=== PATIENT | male | born 1965 | race American Indian/Alaskan Native ===

== ENCOUNTER 2018-08-28 10:25 | Day surgery (SDC) | payer OTHER ==
[2018-08-28 10:19] LABS: Basophils % (Auto) 0.5 % (0.0-1.8); Eosinophils # (Auto) 0.1 K/mm3 (0.0-0.4); Hematocrit 41.5 % (35.5-45.6); Hemoglobin 13.7 gm/dl (11.8-15.2); Lymphocytes # (Auto) 1.6 K/mm3 (1.2-5.4); Lymphocytes % (Auto) 18.7 % (13.4-35.0); Mean Corpuscular HGB Conc 33 % (32-34); Mean Corpuscular Volume 89 fl (84-94); Monocytes # (Auto) 0.8 K/mm3 (0.0-0.8); Monocytes % (Auto) 9.7 % (0.0-7.3); Platelet Count 253 K/mm3 (140-440); Red Blood Count 4.65 M/mm3 (3.65-5.03); Red Cell Distribution Width 13.7 % (13.2-15.2)
[2018-08-28 10:22] LABS: Albumin 4.3 g/dL (3.9-5); Calcium 9.3 mg/dL (8.4-10.2)
[~2018-08-28 10:25] MED LIST: DILAUDID IV ONE; LACTATED RINGERS ONE; LEVAQUIN IV ONE; NACL 0.9% 1000 ML 1,000 ML IV ONE; NACL 0.9% 1000 ML ONE; SUBLIMAZE ONE; WATER FOR IRRIG STERILE IR ONE; ZOFRAN IV ONE
--- NOTE | 2018-08-28 10:35 | Emergency Department Report ---
ED Abdominal Pain HPI - General Chief Complaint: Abdominal Pain Stated Complaint: KIDNEY STONES Time Seen by Provider: 08/28/18 09:54 Source: patient Mode of arrival: Ambulatory Limitations: No Limitations - History of Present Illness Initial Comments: Patient is a 53-year-old [place] male who is presenting with right flank pain. Patient has had pain for approximately 1 week. Patient has seen Dr. Amaro as an outpatient for obstructive right-sided kidney stone. Patient continued to have pain which she states is a sharp pain in the right flank with nausea vomiting. Patient denies fevers chills cough cold or congestion. Patient was sent to to the emergency department to be prepped for surgery. - Related Data Allergies Allergy/AdvReac Type Severity Reaction Status Date / Time latex Allergy Hives Verified 08/28/18 08:24 Penicillins Allergy Hives Verified 08/28/18 08:23 ED Review of Systems ROS: Stated complaint: KIDNEY STONES Other details as noted in HPI Comment: All other systems reviewed and negative ED Past Medical Hx - Past Medical History Hx Hypertension: Yes - Surgical History Hx Appendectomy: Yes - Social History Smoking Status: Never Smoker Substance Use Type: None ED Physical Exam - General Limitations: No Limitations General appearance: alert, in distress - Head Head exam: Present: atraumatic, normocephalic - Eye Eye exam: Present: normal appearance - ENT ENT exam: Present: mucous membranes moist - Neck Neck exam: Present: normal inspection - Respiratory Respiratory exam: Present: normal lung sounds bilaterally. Absent: respiratory distress, wheezes, rales, rhonchi - Cardiovascular Cardiovascular Exam: Present: regular rate, normal rhythm. Absent: systolic murmur, diastolic murmur, rubs, gallop - GI/Abdominal GI/Abdominal exam: Present: soft, tenderness (right flank), normal bowel sounds. Absent: distended, guarding, rebound - Rectal Rectal exam: Present: deferred - Extremities Exam Extremities exam: Present: normal inspection - Back Exam Back exam: Present: normal inspection, CVA tenderness (R) - Neurological Exam Neurological exam: Present: alert, oriented X3 - Psychiatric Psychiatric exam: Present: normal affect, normal mood - Skin Skin exam: Present: warm, dry, intact, normal color. Absent: rash ED Course Vital Signs 08/28/18 08:24 Temperature 98.7 F Pulse Rate 88 Respiratory 18 Rate Blood Pressure 153/102 [Right] O2 Sat by Pulse 97 Oximetry ED Medical Decision Making - Lab Data Result diagrams: 08/28/18 09:50 08/28/18 09:50 - Medical Decision Making Patient was given a bolus IV fluids and meds for symptomatic relief. Patient will be sent to the preop area at this time. Patient admitted under observation status. Critical care attestation.: If time is entered above; I have spent that time in minutes in the direct care of this critically ill patient, excluding procedure time. ED Disposition Clinical Impression: Obstructive uropathy Disposition: OP ADMIT IP TO THIS HOSP Is pt being admited?: Yes Does the pt Need Aspirin: No Condition: Stable Time of Disposition: 10:35
[2018-08-28] MEDS ORDERED: DIPRIVAN 10 MG/ML IV ONE (10:40)
[2018-08-28] MEDS ORDERED: XYLOCAINE MPF 2% ONE (10:40)
[2018-08-28] MEDS ORDERED: SUBLIMAZE ONE ×3 (10:40→14:03)
[2018-08-28 10:47] LABS: Bilirubin,Urine NEG (Negative); Blood,Urine MOD (Negative); Color,Urine Yellow (Yellow); Mucus,Urine FEW /HPF; Protein,Urine <15 mg/dL mg/dL (Negative); Urobilinogen,Urine < 2.0 mg/dL (<2.0)
[2018-08-28] MEDS ORDERED: LEVAQUIN 500MG/100ML 500 MG/100 ML BAG IV SCH (10:57)
[2018-08-28] MEDS ORDERED: LACTATED RINGERS 1,000 ML IV SCH (11:00)
[2018-08-28] MEDS ORDERED: LACTATED RINGERS 1,000 ML ONE (11:07)
[2018-08-28] MEDS ORDERED: NACL 0.9% 1000 ML 1,000 ML IV SCH (11:21)
[2018-08-28] MEDS ORDERED: ZOFRAN IV PRN (11:34)
[2018-08-28] MEDS ORDERED: SUBLIMAZE IV PRN (11:34)
--- NOTE | 2018-08-28 11:35 | Anesthesia Day of Surgery ---
Anesthesia Day of Surgery - Day of Surgery Patient Examined: Yes Patient H&P Reviewed: Yes Patient is NPO: Yes
--- NOTE | 2018-08-28 11:38 | Anesthesia Consultation ---
Anesthesia Consult and Med Hx Date of service: 08/28/18 - Airway Anesthetic Teeth Evaluation: Good ROM Head & Neck: Adequate Mental/Hyoid Distance: Adequate Mallampati Class: Class II Intubation Access Assessment: Good - Pre-Operative Health Status ASA Pre-Surgery Classification: ASA2, Emergency Proposed Anesthetic Plan: General - Cardiovascular System Hx Hypertension: Yes - Endocrine Hx Renal Disease: No (Cr-1.7) Hx Non-Insulin Dependent Diabetes: Yes
[2018-08-28] MEDS ORDERED: LEVAQUIN 500MG/100ML 500 MG/100 ML BAG IV ONE (11:44)
[2018-08-28] MEDS ORDERED: WATER FOR IRRIG STERILE IR ONE (12:08)
--- NOTE | 2018-08-28 12:34 | Short Stay Summary ---
Short Stay Documentation - History H&P: obtained from office - Allergies and Medications Current Medications: Allergies latex Allergy (Verified 08/28/18 08:24) Hives Penicillins Allergy (Verified 08/28/18 08:23) Hives Active Medications Fentanyl (Sublimaze) 50 mcg IV Q5MIN PRN PRN Reason: Pain , Severe (7-10) Stop: 08/28/18 20:00 Ondansetron HCl (Zofran) 4 mg IV ONCE PRN PRN Reason: Nausea And Vomiting Stop: 08/28/18 20:00 - Brief post op/procedure progress note Date of procedure: 08/28/18 Pre-op diagnosis: rt distal stone Post-op diagnosis: same Procedure: cysto, rpg, rt ureteroscopy, basket stone, stent with string Anesthesia: JACKELYN Surgeon: DIEGO MCLEAN Estimated blood loss: none Pathology: list (give stone to pt) Condition: stable - Hospital course Hospital course: vic ayala, fallon on chart give stone to pt - Disposition Condition at discharge: Stable Disposition: DC-09 OP ADMIT IP TO THIS HOSP Short Stay Discharge Plan Follow up with: EDGAR RATLIFF MD [Primary Care Provider] - 7 Days
[2018-08-28] MEDS ORDERED: NACL 0.9% 1000 ML 1,000 ML ONE ×2 (13:45→14:58)
--- NOTE | 2018-08-28 13:47 | Operative Report ---
PREOPERATIVE DIAGNOSIS: Right distal stone with severe colic and vomiting. POSTOPERATIVE DIAGNOSIS: Right distal stone with severe colic and vomiting. PROCEDURE: Cystoscopy, bilateral retrograde pyelograms, right ureteroscopy, basket stone extraction, double-J stent with a string (6-Austrian 24 cm). SURGEON: Сергей Amaro MD ANESTHESIA: General. ESTIMATED BLOOD LOSS: Minimal. FLUIDS: Crystalloid. COMPLICATIONS: No complications. INDICATIONS: This 53-year-old gentleman was seen in the office with right flank pain. He had been to several medical facilities regarding right flank pain. He had a CT of abdomen and pelvis, which revealed a 3 mm distal stone in the office. He had persistent pain over the weekend. It worsened with vomiting. He ultimately presented to the Emergency Room. He was taken to the OR. DESCRIPTION OF PROCEDURE: The patient was taken to the operative suite, placed in a supine position. After adequate general anesthesia, placed in a dorsal lithotomy position, prepped and draped in a sterile fashion. Pancystourethroscopy was performed with a 22-Austrian Storz cystoscope. He has a normal urethra, prostate, nonobstructing bladder, no tumors or stones were noted. Bilateral retrograde pyelograms were obtained with an 8-Austrian [place] catheter and 8 mL of contrast. No filling defects or obstruction on the left. Right side obvious distal filling defect consistent with the stone. Two 0.035 Glidewires were placed. Right rigid ureteroscopy was performed. A distal 3 mm stone could be appreciated. It was engaged with a 3-Austrian Giuliana basket, extracted without difficulty. He had some debris in the ureter; therefore I did not scope to the renal pelvis. A 6-Austrian 24 cm double-J stent was left internal. Adequate position confirmed on fluoroscopy, had an external string. His bladder was drained. Rectal exam was benign. He was extubated and taken to recovery room. We will give him his stone. He will go home on Levaquin, Ultram and Alvin. JOB# [id number] [facility]
[2018-08-28] MEDS ORDERED: NORCO 5/325 PO PRN (15:58)
[2018-08-28 17:19] VITALS: BP 148/87
--- NOTE | 2018-08-29 07:55 | Fluoroscopy Report ---
FLUOROSCOPY RETROGRADE UROGRAPHY: HISTORY: Right ureteral stone. FINDINGS: Fluoroscopy was provided by radiology during retrograde urography by the urologist. 4 fluoroscopic images were captured. The left retrograde pyelogram is normal. Images of the right retrograde pyelogram demonstrate a small filling defect estimated at 4 mm in the distal right ureter consistent with a mildly obstructing stone. Subsequent images demonstrate right ureteroscopy. The stone was removed with the use of a basket. A right ureteral stent was placed which adequately drains the right collecting system on the final image. Please correlate with the procedural report by Dr. Amaro as needed. IMPRESSION: Right ureteral stone removal. Right ureteral stent placement.
--- NOTE | 2018-09-18 15:28 | Emergency Department Report ---
ED Abdominal Pain HPI - General Chief Complaint: Abdominal Pain Stated Complaint: KIDNEY STONES Time Seen by Provider: 08/28/18 09:54 Source: patient Mode of arrival: Ambulatory Limitations: No Limitations - History of Present Illness Initial Comments: Patient is a 53-year-old [place] male who is presenting with right flank pain. Patient has had pain for approximately 1 week. Patient has seen Dr. Amaro as an outpatient for obstructive right-sided kidney stone. Patient continued to have pain which she states is a sharp pain in the right flank with nausea vomiting. Patient denies fevers chills cough cold or congestion. Patient was sent to to the emergency department to be prepped for surgery. - Related Data Home Medications Medication Instructions Recorded Confirmed Last Taken amLODIPine [Norvasc] 5 mg PO DAILY 08/28/18 08/28/18 08/27/18 08:00 metFORMIN [Glucophage] 500 mg PO BID 08/28/18 08/28/18 08/25/18 10:00 Allergies Allergy/AdvReac Type Severity Reaction Status Date / Time latex Allergy Hives Verified 08/28/18 08:24 Penicillins Allergy Hives Verified 08/28/18 08:23 ED Review of Systems ROS: Stated complaint: KIDNEY STONES Other details as noted in HPI Comment: All other systems reviewed and negative ED Past Medical Hx - Past Medical History Hx Hypertension: Yes - Surgical History Hx Appendectomy: Yes - Social History Smoking Status: Never Smoker Substance Use Type: None - Medications Home Medications: Home Medications Medication Instructions Recorded Confirmed Last Taken Type amLODIPine [Norvasc] 5 mg PO DAILY 08/28/18 08/28/18 08/27/18 08:00 History metFORMIN [Glucophage] 500 mg PO BID 08/28/18 08/28/18 08/25/18 10:00 History ED Physical Exam - General Limitations: No Limitations General appearance: alert, in distress - Head Head exam: Present: atraumatic, normocephalic - Eye Eye exam: Present: normal appearance - ENT ENT exam: Present: mucous membranes moist - Neck Neck exam: Present: normal inspection - Respiratory Respiratory exam: Present: normal lung sounds bilaterally. Absent: respiratory distress, wheezes, rales, rhonchi - Cardiovascular Cardiovascular Exam: Present: regular rate, normal rhythm. Absent: systolic murmur, diastolic murmur, rubs, gallop - GI/Abdominal GI/Abdominal exam: Present: soft, tenderness (right flank), normal bowel sounds. Absent: distended, guarding, rebound - Rectal Rectal exam: Present: deferred - Extremities Exam Extremities exam: Present: normal inspection - Back Exam Back exam: Present: normal inspection, CVA tenderness (R) - Neurological Exam Neurological exam: Present: alert, oriented X3 - Psychiatric Psychiatric exam: Present: normal affect, normal mood - Skin Skin exam: Present: warm, dry, intact, normal color. Absent: rash ED Course Vital Signs 08/28/18 08:24 Temperature 98.7 F Pulse Rate 88 Respiratory 18 Rate Blood Pressure 153/102 [Right] O2 Sat by Pulse 97 Oximetry ED Medical Decision Making - Medical Decision Making Patient was given a bolus IV fluids and meds for symptomatic relief. Patient will be sent to the preop area at this time. Patient admitted under observation status. Critical care attestation.: If time is entered above; I have spent that time in minutes in the direct care of this critically ill patient, excluding procedure time. ED Disposition Is pt being admited?: Yes Does the pt Need Aspirin: No Time of Disposition: 10:35
--- NOTE | 2018-09-18 15:29 | Anesthesia Day of Surgery ---
Anesthesia Day of Surgery - Day of Surgery Patient Examined: Yes Patient H&P Reviewed: Yes Patient is NPO: Yes
--- NOTE | 2018-09-18 15:32 | Short Stay Summary ---
Short Stay Documentation - History H&P: obtained from office - Allergies and Medications Current Medications: Allergies latex Allergy (Verified 08/28/18 08:24) Hives Penicillins Allergy (Verified 08/28/18 08:23) Hives Active Medications Fentanyl (Sublimaze) 50 mcg IV Q5MIN PRN PRN Reason: Pain , Severe (7-10) Stop: 08/28/18 20:00 Ondansetron HCl (Zofran) 4 mg IV ONCE PRN PRN Reason: Nausea And Vomiting Stop: 08/28/18 20:00 - Brief post op/procedure progress note Date of procedure: 08/28/18 Pre-op diagnosis: rt distal stone Post-op diagnosis: same Procedure: cysto, rpg, rt ureteroscopy, basket stone, stent with string Anesthesia: JACKELYN Surgeon: DIEGO MCLEAN Estimated blood loss: none Pathology: list (give stone to pt) Condition: stable - Hospital course Hospital course: levaquin, norco, ultram on chart give stone to pt Short Stay Discharge Plan Additional Instructions: Follow up within one to two weeks Force plenty of fluid. Follow up with: ROXIE ROSS MD [Primary Care Provider] - 7 Days Forms: [facility]
== END 2018-08-28 12:00 | disposition home or self-care (01) ==
LOC: OR 10:25
PROVIDERS: ATTEND Urology
DX: N20.1 Calculus of ureter (principal); I10 Essential (primary) hypertension; G47.33 Obstructive sleep apnea (adult) (pediatric); E11.9 Type 2 diabetes mellitus without complications; Z88.0 Allergy status to penicillin; Z91.040 Latex allergy status; Z79.84 Long term (current) use of oral hypoglycemic drugs; Z79.899 Other long term (current) drug therapy; Z90.49 Acquired absence of other specified parts of digestive tract; Z98.890 Other specified postprocedural states
CPT/HCPCS: 36415; 52332; 52352; 74420; 80053; 81001; 82962; 85025; 99285; A4217; C1758; C1769; C2617; J1170; J1956; J2405; J2704; J3010; J7030; J7120; Q9967; 99283